=== PATIENT | female | born 1980 | race Caucasian/White ===

== ENCOUNTER 2016-08-14 00:48 | Emergency (ER) | payer OTHER ==
[2016-08-14 01:01] VITALS: RESP 18
[2016-08-14] MEDS ORDERED: KETOROLAC TROMETHAMINE 30 MG/ML SOL IM ONE (01:17)
[2016-08-14] MEDS ORDERED: AMOXIL/CLAVULANATE 875/125 TAB PO ONE (01:18)
[2016-08-14] MEDS ORDERED: AUGMENTIN(FRIDGE) 400 MG/5 ML PO ONE (01:20)
[2016-08-14] MEDS ORDERED: KETOROLAC TROMETHAMINE 30 MG/ML SOL ONE (01:21)
[2016-08-14] MEDS ORDERED: ACETAMINOPHEN 120 MG SUP PR ONE (01:22)
[2016-08-14 01:31] VITALS: BP 150/109; PULSE 83; TEMP 96.5; O2SAT 98
== END 2016-08-14 01:35 | disposition home or self-care (01) | DRG 159 ==
LOC: ED 00:48
DX: K08.89 Other specified disorders of teeth and supporting structures (principal)
CPT/HCPCS: 96372; 99283; J1885

== ENCOUNTER 2016-11-14 15:32 | Emergency (ER) | payer SELFPAY ==
[2016-11-14 16:00] VITALS: BP 155/88; PULSE 100; RESP 16; TEMP 97.1; O2SAT 100
[2016-11-14] MEDS ORDERED: BACITRACIN 500 U/GM OIN TOP ONE ×2 (18:28→18:29)
== END 2016-11-14 18:32 | disposition home or self-care (01) | DRG 607 ==
LOC: ED 15:32
DX: L73.9 Follicular disorder, unspecified (principal)
CPT/HCPCS: 99282

== ENCOUNTER 2018-01-20 16:31 | Emergency (ER) | payer MEDICAID, OTHER ==
[2018-01-20 16:55] VITALS: RESP 20; TEMP 97.2
[2018-01-20 17:00] VITALS: BP 113/77; PULSE 74; O2SAT 97
[2018-01-20] MEDS ORDERED: IBUPROFEN 400 MG TAB PO ONE (17:26)
[2018-01-20] MEDS ORDERED: ACETAMINOPHEN 500 MG 500 MG TAB PO ONE (17:26)
[2018-01-20] MEDS ORDERED: ACETAMINOPHEN 500 MG 500 MG TAB ONE (17:31)
[2018-01-20] MEDS ORDERED: IBUPROFEN 400 MG TAB ONE (17:31)
== END 2018-01-20 17:37 | disposition home or self-care (01) ==
LOC: ED 16:31
DX: S93.402A Sprain of unspecified ligament of left ankle, initial encounter (principal)
CPT/HCPCS: 73610; 99282; A9270-GY

== ENCOUNTER 2018-10-12 17:00 | Emergency (ER) | payer OTHER ==
[2018-10-12 17:57] VITALS: RESP 18; TEMP 97.5
[2018-10-12 19:06] VITALS: BP 120/77; PULSE 66; O2SAT 96
== END 2018-10-12 18:53 | disposition home or self-care (01) | DRG 916 ==
LOC: ED 17:00
DX: T78.40XA Allergy, unspecified, initial encounter (principal)
CPT/HCPCS: 99282; 99283